=== PATIENT | male | born 1970 | race Caucasian/White ===

== ENCOUNTER 2022-11-13 11:49 | Emergency (ER) | payer BC, SELFPAY ==
[2022-11-13 12:05] VITALS: BP 141/89; PULSE 82; RESP 18; TEMP 36.4; O2SAT 95
--- NOTE | 2022-11-13 12:48 | ED.WOUNDLAC ---
HPI - Wound/Laceration General Chief Complaint: Wound/Laceration Stated Complaint: laceration Time Seen by Provider: 11/13/22 12:45 Source: patient Mode of arrival: ambulatory Limitations: no limitations History of Present Illness HPI narrative: Patient presents today complaining of a laceration to his left hand that was sustained just prior to arrival on a razor knife. He is up-to-date on his tetanus vaccine. Denies any current pain. Denies any numbness or tingling in the hand or fingers. He has tried no [id number] treatment prior to arrival. Review of Systems Review of Systems: CONSTITUTIONAL: Denies body aches, fever, chills, or sweats. EYES: Denies visual changes, redness, or discharge. ENT: Denies rhinorrhea, congestion, sore throat, or otalgia. CARDIOVASCULAR: Denies chest pain, palpitations, or edema. RESPIRATORY: Denies cough or dyspnea. GASTROINTESTINAL: Denies abdominal pain, nausea, vomiting, or diarrhea. GENITOURINARY: Denies dysuria or hematuria. SKIN: Denies rash, itching. + left hand laceration MUSCULOSKELETAL: Denies back pain, joint pain, or myalgia. NEUROLOGIC: Denies headache, numbness, tingling, or weakness. PSYCH: Denies depression or anxiety. PMFSH Comments At time of signature, I have reviewed and agree with nursing past medical, surgical, social and family history unless otherwise noted. Please see nursing chart for further information. There is no relevant family history pertinent to the presenting complaint Exam Narrative: GENERAL: Well-appearing, well-nourished, and in no acute distress. HEAD: Normocephalic, atraumatic. EYES: EOMI. No redness or drainage. Conjunctivae normal. ENT: Mucous membranes pink and moist. NECK: Normal AROM. CHEST: No respiratory distress. EXTREMITIES: Left hand: 4.5 cm full-thickness linear laceration to the thenar eminence. Distal sensation intact. Capillary refill. Radial pulse normal. Full range of motion of the thumb against resistance. SKIN: Warm, dry, no rash. Capillary refill normal. Normal skin turgor. NEURO: No focal deficits. Alert and oriented x3. Gait steady. PSYCH: Normal affect. No signs of depression or anxiety. Course Course Level of Care: Express Care Visit Vital Signs Vital signs: Vital Signs Temperature 97.5 F L 11/13/22 12:05 Pulse Rate 82 11/13/22 12:05 Respiratory Rate 18 11/13/22 12:05 Blood Pressure 141/89 H 11/13/22 12:05 Pulse Oximetry 95 11/13/22 12:05 Oxygen Delivery Room Air 11/13/22 12:05 Temperature 97.5 F L 11/13/22 12:05 Pulse Rate 82 11/13/22 12:05 Respiratory Rate 18 11/13/22 12:05 Blood Pressure 141/89 H 11/13/22 12:05 Pulse Oximetry 95 11/13/22 12:05 Oxygen Delivery Room Air 11/13/22 12:05 Reviewed. Pt has been instructed to follow up with his PCP regarding his elevated blood pressure today. Procedures Laceration Laceration 1: Date: 11/13/22 Time: 13:18 Site: hand Side (If applicable): left Size (cm): 4.5 Description: linear Depth: simple, single layer Local Anesthetic: lidocaine 1% Amount of anesthesia used (mL): 3.5 Pre-repair: wound explored and irrigated ====== Skin Level ====== Skin layer closed with: nylon Size (cm): 5-0 Number of sutures: 6 Technique: simple, interrupted ====== Subcutaneous Layer ====== ====== Muscle Layer ====== ====== Tendon Layer ====== Dressing: Dressing applied by RN MDM - Wound/Laceration MDM Narrative Medical decision making narrative: Wound was closed with sutures. Discharge instructions given Differential Diagnosis Differential diagnosis: Likely laceration and avulsion of skin Critical Care Time Critical Care Time Critical Care Time: No Discharge Plan Discharge Clinical Impression: Laceration of hand, left Qualifiers: Encounter type: initial encounter Foreign body presence: without foreign
== END 2022-11-13 13:21 | disposition home or self-care (01) ==
PROVIDERS: Emergency Provider Nurse Practitioner
DX: S61.412A Laceration without foreign body of left hand, initial encounter (principal); W27.8XXA Contact with other nonpowered hand tool, initial encounter
CPT/HCPCS: 12002; 99212; G0463